=== PATIENT | male | born 1945 | race Hispanic/Latino ===

== ENCOUNTER 2018-02-01 14:32 | Outpatient (CLI) | payer MEDICARE ==
--- NOTE | 2018-02-01 14:58 | RAD ---
TWO VIEWS OF THE CHEST: Comparison: None. History: Dyspnea. FINDINGS: Two views of the chest show normal sized cardiomediastinal silhouette. There is no evidence of consol idation, mass, or pleural effusion. The bones are unremarkable. IMPRESSION: No evidence of acute cardiopulmonary disease. POS: [facility]
== END 2018-02-01 14:33 | disposition home or self-care (01) ==
LOC: RAD 14:32
PROVIDERS: ATTEND Internal Medicine
DX: R06.00 Dyspnea, unspecified (principal)
CPT/HCPCS: 71046

== ENCOUNTER 2018-10-04 09:57 | Emergency (ER) | payer MEDICARE ==
[2018-10-04 11:45] LABS: #Basophils 0.1 thou/uL (0.0-0.2); #Eosinphils 0.1 thou/uL (0.0-0.7); #Lymphocytes 1.1 thou/uL (1.20-3.40); #Monocytes 0.6 thou/uL (0.11-0.59); #Neutrophils 4.8 thou/uL (1.40-6.50); %Basophils 0.8 % (0.0-1.0); %Eosinophils 1.2 % (0.0-10.0); %Lymphocytes 16.7 % (21.0-51.0); %Neutrophils 72.3 % (42.0-75.0); Hemoglobin 13.6 g/dL (14.0-18.0); Mean Corpuscular HGB CONC 34.3 g/dL (32.0-36.0); Mean Corpuscular Hemoglobin 33.2 pg (27.0-31.0); Mean Corpuscular Volume 96.7 fL (78.0-98.0); Mean Platelet Volume 7.7 fL (7.4-10.4); Platelet Count 269 thou/uL (130-400); RBC Distribution Width 11.4 % (11.5-14.5); Red Blood Cell (RBC) Count 4.11 mill/uL (4.70-6.10); White Blood Cell (WBC) Count 6.6 thou/uL (4.8-10.8)
[2018-10-04] MEDS ORDERED: Lidocaine 2% 11 ML SYR TOP SCH (12:30)
== END 2018-10-04 14:48 | disposition home or self-care (01) ==
LOC: ERS 09:57
DX: R33.9 Retention of urine, unspecified (principal); I10 Essential (primary) hypertension; F41.9 Anxiety disorder, unspecified
CPT/HCPCS: 36415; 51703; 85025; 87086

== ENCOUNTER 2018-10-31 14:16 | Outpatient (CLI) | payer MEDICARE ==
[~2018-10-31 14:16] MED LIST: Iopamidol 370 76% 100 ML VIAL ONE
--- NOTE | 2018-10-31 15:47 | CT ---
CT ABDOMEN AND PELVIS WITHOUT AND WITH CONTRAST: 10/31/18 COMPARISON: 03/08/14. HISTORY: Gross hematuria. TECHNIQUE: Multiple contiguous axial images were obtained in a CT of the abdomen and pelvis without and with IV contrast. Postcontrast images are obtained in a nephrographic and excretory phases. Coronal reformat s were performed. FINDINGS: No calcifications are seen in the kidneys. There is a subcentimeter hypodensity in the left kidney wh ich likely represents a small cyst. The right kidney is unremarkable. No hydronephrosis is seen. No f illing defect is seen in either ureter or within the urinary bladder. There are calcified gallstones in the gallbladder. The liver, adrenal glands, spleen, and pancreas ar e unremarkable. No free air, free fluid, or stranding changes are seen in the abdomen or pelvis. The larger and small bowel are unremarkable. No abdominal or pelvic lymphadenopathy are seen. Atherosclerotic calcifications are seen in the aorta . Degenerative changes are seen in the spine. The visualized inferior thorax and abdominal wall soft ti ssues are unremarkable. IMPRESSION: 1. Small left renal cyst without other renal or urinary collecting system abnormality. 2. Cholelithiasis. POS: [facility]
== END 2018-10-31 14:17 | disposition home or self-care (01) ==
LOC: BICCT 14:16
PROVIDERS: ATTEND Urology
DX: R31.0 Gross hematuria (principal); N28.1 Cyst of kidney, acquired; K80.20 Calculus of gallbladder without cholecystitis without obstruction
CPT/HCPCS: 74178; 82565; Q9967

== ENCOUNTER 2024-01-10 09:38 | Outpatient (CLI) | payer MEDICARE | END 2024-01-10 09:39 | disposition home or self-care (01) | LOC: NM 09:38 | PROVIDERS: ATTEND Urology | DX: C61 Malignant neoplasm of prostate (principal) | CPT/HCPCS: 78306; A9503 ==

== ENCOUNTER 2025-02-14 12:22 | Inpatient (IN) | payer MEDICARE ==
[2025-02-14 12:58] LABS: #Basophils 0.04 10x3/uL (0.0-0.2); #Eosinophils 0.04 10x3/uL (0.0-0.7); #Monocytes 1.54 10x3/uL (0.11-0.59); #Neutrophils 7.53 10x3/uL (1.40-6.50); %Basophils 0.4 % (0.0-1.0); %Eosinophils 0.4 % (0.0-10.0); %Lymphocytes 4.7 % (21.0-51.0); %Monocytes 15.9 % (0.0-10.0); %Neutrophils 78.0 % (42.0-75.0); Hematocrit 31.5 % (42.0-52.0); Hemoglobin 11.1 g/dL (14.0-18.0); Mean Corpuscular Hemoglobin 35.0 pg (27.0-31.0); Mean Corpuscular Volume 99.4 fL (78.0-98.0); Platelet Count 202 10x3/uL (130-400); Red Blood Cell (RBC) Count 3.17 mill/uL (4.70-6.10); White Blood Cell (WBC) Count 9.66 10x3/uL (4.8-10.8)
[2025-02-14 13:19] LABS: ALT (SGPT) 40 U/L (Less than 45); AST (SGOT) 33 U/L (11-34); Albumin 4.1 g/dL (3.1-4.5); Alkaline Phosphatase 49 U/L (40-110); Anion Gap 15 mmol/L (10-20); BUN (Urea Nitrogen) 22 mg/dL (8.4-25.7); Bilirubin, Total 0.8 mg/dL (0.3-1.2); CK (CPK) 114 U/L (30-200); Calc. Creatinine Clearance 0 mL/min (70-130); Calcium 8.5 mg/dL (7.8-10.44); Carbon Dioxide 24 mmol/L (23-31); Chloride 100 mmol/L (98-107); Globulin 3.0 g/dL (2.4-3.5); Glucose 116 mg/dL (83-110); Potassium 3.6 mmol/L (3.5-5.1); Sodium 135 mmol/L (136-145)
[2025-02-14 13:20] LABS: Troponin I 0.053 ng/mL (< 0.028)
[2025-02-14] MEDS ORDERED: Acetaminophen 500 MG TAB ONE (13:22)
[2025-02-14 14:20] LABS: Bacteria/HPF None Seen HPF (None Seen); CAUTI Indications for Culture Fever or rigors; Glucose, Urine (Dipstick) Normal (Negative); Leukocyte Negative Leu/uL (Negative); Protein, Urine (Dipstick) Negative (Neg-Trace); RBC/HPF 0-3 HPF (0-3); Specific Gravity, Urine 1.018 (1.002-1.036); WBC/HPF 0-3 HPF (0-3)
[2025-02-14 14:27] LABS: Urine Culture Reflex No No
[2025-02-14] MEDS ORDERED: Ondansetron PF 4 MG/2 ML Vial IVP PRN (16:27)
[2025-02-14 17:28] LABS: Magnesium 2.1 mg/dL (1.6-2.6)
[2025-02-14 17:34] LABS: Troponin I 0.024 ng/mL (< 0.028)
[2025-02-14 20:37] LABS: Troponin I 0.016 ng/mL (< 0.028)
[2025-02-14] MEDS: Famotidine 20 MG TAB PO SCH (20:41)
[2025-02-14] MEDS: Melatonin 3 MG TAB PO PRN (20:49)
[2025-02-14] MEDS: Ketorolac Tromethamine 30 MG (1 mL) VIAL IVP PRN (20:49)
[2025-02-14 21:01] VITALS: BMI 36.9
[2025-02-15 05:14] LABS: #Basophils Less than 0.03 10x3/uL (0.0-0.2); #Eosinophils 0.10 10x3/uL (0.0-0.7); #Monocytes 0.86 10x3/uL (0.11-0.59); #Neutrophils 4.37 10x3/uL (1.40-6.50); %Basophils 0.4 % (0.0-1.0); %Eosinophils 1.8 % (0.0-10.0); %Lymphocytes 5.1 % (21.0-51.0); %Monocytes 15.2 % (0.0-10.0); %Neutrophils 77.0 % (42.0-75.0); Hematocrit 28.9 % (42.0-52.0); Hemoglobin 10.1 g/dL (14.0-18.0); Mean Corpuscular Hemoglobin 34.8 pg (27.0-31.0); Mean Corpuscular Volume 99.7 fL (78.0-98.0); Platelet Count 153 10x3/uL (130-400); Red Blood Cell (RBC) Count 2.90 mill/uL (4.70-6.10); White Blood Cell (WBC) Count 5.67 10x3/uL (4.8-10.8)
[2025-02-15 05:40] LABS: Anion Gap 14 mmol/L (10-20); BUN (Urea Nitrogen) 20 mg/dL (8.4-25.7); Calc. Creatinine Clearance 87 mL/min (70-130); Calcium 8.6 mg/dL (7.8-10.44); Carbon Dioxide 22 mmol/L (23-31); Cardiac Risk 4.9 (Less than 4.5); Chloride 103 mmol/L (98-107); Cholesterol 165 mg/dl (< 200 Desired); Glucose 113 mg/dL (83-110); HDL Cholesterol 34 mg/dL (>60 Neg Risk); LDL Cholesterol, Calculated 110 mg/dL; Potassium 3.3 mmol/L (3.5-5.1); Sodium 136 mmol/L (136-145); Triglycerides 107 mg/dL (Less than 150)
[2025-02-15] MEDS: Multivit, Therapeutic 1 TAB PO SCH (09:20)
[2025-02-15] MEDS: NIRMATRELVIR 150 MG (X 2)/RITONAVIR 100 MG TAB PO SCH (09:21)
[2025-02-15] MEDS: Acetaminophen 325 MG TAB PO PRN (14:25)
[2025-02-15] MEDS: Carvedilol 6.25 MG TAB PO SCH (20:40)
[2025-02-16 04:50] VITALS: TEMP 98.6
[2025-02-16 07:17] VITALS: BP 133/78
[2025-02-16] MEDS ORDERED: PREDNISONE 5 MG PO SCH (09:00)
[2025-02-16] MEDS ORDERED: CHONDROITIN PO SCH (09:00)
[2025-02-16] MEDS ORDERED: GLUCOSAMIN PO SCH (09:00)
[2025-02-16] MEDS ORDERED: ABIRATERONE ACETATE 250 MG PO SCH ×2 (09:00)
[2025-02-16] MEDS ORDERED: MSM PO SCH (09:00)
[2025-02-16] MEDS: Sertraline 25 MG TAB PO SCH (09:44)
== END 2025-02-16 12:18 | disposition home or self-care (01) | DRG 178 ==
LOC: ERS 12:22 → OBS 16:35 → OBSVTOIN 02-15 16:06
PROVIDERS: ADMIT Hospitalist; ATTEND Internal Medicine
DX: U07.1 COVID-19 (principal); I5A Non-ischemic myocardial injury (non-traumatic); I10 Essential (primary) hypertension; F41.9 Anxiety disorder, unspecified; E87.6 Hypokalemia; Z85.46 Personal history of malignant neoplasm of prostate; Z92.3 Personal history of irradiation; Z98.890 Other specified postprocedural states; Z90.79 Acquired absence of other genital organ(s); Z88.2 Allergy status to sulfonamides; Z88.8 Allergy status to other drugs, medicaments and biological substances
CPT/HCPCS: 36415; 70450; 71045; 71275; 80048; 80053; 80061; 81001; 82550; 83605; 83735; 83880; 84484; 85025; 93005; 93306; 96374; 96376; G0378; J1885; J7120; J7512